=== PATIENT | male | born 1930 | race Hispanic/Latino ===

== ENCOUNTER 2017-06-04 03:00 | Emergency (ER) | payer MEDICARE ==
[2017-06-04 03:00] VITALS: PULSE 98; BMI 28.1
[2017-06-04 03:17] VITALS: TEMP 97.4
--- NOTE | 2017-06-04 03:52 | ED PDOC ---
Arrival/HPI - General Chief Complaint: Dizziness/Lightheaded Time Seen by Provider: 06/04/17 03:11 Historian: Patient - History of Present Illness Narrative History of Present Illness (Text): 06/04/17 04:25 An 86 year old male, whose past medical history includes atrial fibrillation and prostate cancer, presents to the emergency department complaining of lightheadedness, generalized weakness and urinary frequency for months. Patient reports he saw PMD in office today, who took urine culture. Patient notes shortness of breath and nausea but denies any dysuria or any other complaints at this time. Son at bedside informs me that he thinks patient may just be anxious and called him to take him to ER. Son states that when he saw patient, there was no change in his condition from the prior months but given that he is not a medical professional and not qualified to evaluated his father, he brought him to ER. Time/Duration: Other (months) Symptom Onset: Sudden Symptom Course: Unchanged Activities at Onset: Rest Context: Home Past Medical History - Provider Review Nursing Documentation Reviewed: Yes - Infectious Disease Hx of Infectious Diseases: None - Tetanus Immunization Tetanus Immunization: Unknown - Cardiac Hx Atrial Fibrillation: Yes Hx Cardiac Arrhythmia: Yes Hx Hypertension: Yes Hx Pacemaker: Yes (defibrillator 2007) - Pulmonary Hx Respiratory Disorders: No - Neurological Hx Neurological Disorder: No - HEENT Hx HEENT Disorder: No - Renal Hx Renal Disorder: No - Endocrine/Metabolic Hx Endocrine Disorders: No - Hematological/Oncological Hx Cancer: Yes (prostate 2001) - Integumentary Hx Dermatological Disorder: No - Musculoskeletal/Rheumatological Hx Musculoskeletal Disorders: No Hx Falls: No - Gastrointestinal Hx Gastrointestinal Disorders: No - Genitourinary/Gynecological Hx Genitourinary Disorders: No - Psychiatric Hx Psychophysiologic Disorder: No Hx Anxiety: No Hx Bipolar Disorder: No Hx Depression: No Hx Emotional Abuse: No Hx Hallucinations: No Hx Panic Disorder: No Hx Post Traumatic Stress Disorder: No Hx Psychosis: No Hx Physical Abuse: No Hx Schizophrenia: No Hx Sexual Abuse: No Hx Substance Use: No - Surgical History Hx Cardiac Catheterization: Yes Hx Coronary Stent: Yes Other/Comment: seeds for prostate ca 15v years ago - Anesthesia Hx Anesthesia: Yes Hx Anesthesia Reactions: No Hx Malignant Hyperthermia: No - Suicidal Assessment Feels Threatened In Home Enviroment: No Family/Social History - Physician Review Nursing Documentation Reviewed: Yes Family/Social History: No Known Family HX Smoking Status: Former Smoker Hx Alcohol Use: No Hx Substance Use: No Hx Substance Use Treatment: No Allergies/Home Meds Allergies/Adverse Reactions: Allergies No Known Allergies Allergy (Verified 06/04/17 03:03) Home Medications: Home Meds Medication Instructions Recorded Confirmed Atorvastatin [Lipitor] 10 mg PO DIN 08/11/14 06/04/17 Warfarin Sodium [Coumadin] 7.5 mg PO DAILY 08/11/14 06/04/17 Allopurinol [Zyloprim] 100 mg PO DAILY 11/14/16 06/04/17 Atenolol [Atenolol] 100 mg PO DAILY 11/14/16 06/04/17 Colchicine [Colcrys] 0.6 mg PO DAILY 11/14/16 06/04/17 Digoxin [Lanoxin] 125 mcg PO DAILY 11/14/16 06/04/17 Isosorbide Mononitrate [Imdur] 60 mg PO DAILY 11/14/16 06/04/17 Lisinopril [Prinivil] 10 mg PO DAILY 11/14/16 06/04/17 Review of Systems - Physician Review All systems were reviewed & negative as marked: Yes - Review of Systems Constitutional: Other (generalized weakness, lightheadedness) Respiratory: SOB Gastrointestinal: Nausea Genitourinary Male: Frequency. absent: Dysuria Physical Exam - Physical Exam Narrative Physical Exam (Text): 06/04/17 04:23 Constitutional: No acute distress. Head: Normocephalic. Atraumatic. Eyes: PERRL. ENT: Moist mucous membranes. Neck: Supple. Cardiovascular: Regular rate. Chest: No tenderness. Respiratory: Clear to auscultation bilaterally. GI: Soft. Nontender. Nondistended. Back: No CVA tenderness. Musculoskeletal: No tenderness or swelling of extremities. Skin: No rash. Neurologic: Alert, no focal deficit. Vital Signs Reviewed: Yes Vital Signs Temp Pulse Resp BP Pulse Ox 06/04/17 05:00 69 16 164/85 H 99 06/04/17 04:45 69 18 163/83 H 96 06/04/17 04:05 65 16 185/96 H 96 06/04/17 03:50 72 16 181/100 H 96 06/04/17 03:35 73 16 160/106 H 95 06/04/17 03:17 97.4 F L 77 16 170/109 H 97 Temperature: Afebrile Blood Pressure: Hypertensive Pulse: Regular Respiratory Rate: Normal Appearance: Positive for: Well-Appearing, Non-Toxic, Comfortable Pain Distress: None Mental Status: Positive for: Alert and Oriented X 3 Finger Stick Blood Glucose: 116 Medical Decision Making ED Course and Treatment: 06/04/17 03:45 Impression: An 86 year old male with lightheadedness, generalized weakness and urinary frequency. Differential Diagnosis included but are not limited to: Plan: -- EKG -- chest xray -- labs -- Urinalysis -- Reassess and disposition Prior Visits: Notes and results from previous visits were reviewed. Patient was last seen in the emergency department on 11/14/16 for evaluation of watery diarrhea. Progress Notes: EKG: Ordered, reviewed, and independently interpreted the EKG. Rate : 84 BPM Rhythm : Atrial fib Interpretation : No ST elevations XR Chest, 1 View FINDINGS: The cardiomediastinal silhouette is enlarged. A single lead pacemaker is identified projecting over the left anterior chest wall. Nodular asymmetries detected within the left upper lobe, a nominal finding. The remainder of the lungs are otherwise clear. No subdiaphragmatic free air or pneumothorax. The trachea is midline. IMPRESSION: Nodular asymmetry within the left upper lobe, as detailed above. Dictated and Authenticated by: Ela Dyer MD 06/04/2017 5:16 AM Eastern Time ([place] & [place]) Labs unremarkable, largely unchanged from previous. Discussed results with patient and son, will discharge home, f/u PMD and Mcdaniels, return to ER for worsening pain, fever, vomiting, dyspnea, or any other problem. Copy of XR report provided with discharge papers. - Lab Interpretations Lab Results: 06/04/17 03:40 06/04/17 03:40 Lab Results 06/04/17 04:15: Urine Color Light yellow, Urine Appearance Clear, Urine pH 6.0, Ur Specific [place] 1.010, Urine Protein Negative, Urine Glucose (UA) Negative, Urine Ketones Negative, Urine Blood Trace-lysed H, Urine Nitrate Negative, Urine Bilirubin Negative, Urine Urobilinogen 0.2, Ur Leukocyte Esterase Negative , Urine RBC 0 - 2, Urine WBC 0 - 2, Ur Epithelial Cells None, Urine Bacteria Small 06/04/17 03:40: Sodium 141, Potassium 3.9, Chloride 107, Carbon Dioxide 23, Anion Gap 15, BUN 14, Creatinine 0.7, Est GFR ( Amer) > 60, Est GFR (Non- Af Amer) > 60, Random Glucose 114 H, Calcium 9.4, Total Bilirubin 1.1, AST 36, ALT 51, Alkaline Phosphatase 97, Total Protein 8.2, Albumin 4.4, Globulin 3.8, Albumin/Globulin Ratio 1.2 06/04/17 03:40: PT 26.1 H, INR 2.42 H, APTT 42.6 H 06/04/17 03:40: WBC 4.3 L, RBC 4.82, Hgb 14.5, Hct 41.7 L, MCV 86.5, MCH 30.1, MCHC 34.8, RDW 13.9, Plt Count 95 L, MPV 9.7, Gran % 60.4, Lymph % (Auto) 25.5, Taney % (Auto) 10.4 H, Eos % (Auto) 3.2, Baso % (Auto) 0.5, Gran # 2.60, Lymph # 1.1 L, Taney # 0.5, Eos # 0.1, Baso # 0.02 06/04/17 03:32: POC Glucose (mg/dL) 116 H I have reviewed the lab results: Yes - RAD Interpretation Radiology Orders: 06/04/17 03:30 CHEST PORTABLE [RAD] Stat - EKG Interpretation Interpreted by ED Physician: Yes Type: 12 lead EKG - Scribe Statement The provider has reviewed the documentation as recorded by the Fabiola Jacobo Provider Scribe Attestation: All medical record entries made by the Fabiola were at my direction and personally dictated by me. I have reviewed the chart and agree that the record accurately reflects my personal performance of the history, physical exam, medical decision making, and the department course for this patient. I have also personally directed, reviewed, and agree with the discharge instructions and disposition. Disposition/Present on Arrival - Present on Arrival Any Indicators Present on Arrival: No History of DVT/PE: No History of Uncontrolled Diabetes: No Urinary Catheter: No History of Decub. Ulcer: No History Surgical Site Infection Following: None - Disposition Have Diagnosis and Disposition been Completed?: Yes Diagnosis: Urinary frequency Disposition: HOME/ ROUTINE Disposition Time: 05:37 Patient Plan: Discharge Condition: STABLE Discharge Instructions (ExitCare): Lightheadedness (ED) Referrals: Vaughn Mcdaniels MD [Staff Provider] - Follow up with primary
[2017-06-04 04:06] LABS: ALB/GLOB RATIO 1.2 (1.1-1.8); ALBUMIN 4.4 g/dL (3.0-4.8); ALT/SGPT 51 U/L (7-56); AST/SGOT 36 U/L (15-59); BLOOD UREA NITROGEN 14 mg/dL (7-21); CALCIUM 9.4 mg/dL (8.4-10.5); GFR AFRICAN-AMERICAN > 60; GFR NON-AFRICAN AMERICAN > 60
[2017-06-04 04:13] LABS: BASO # 0.02 K/mm3 (0.0-2.0); BASO % 0.5 % (0.0-3.0); EOS # 0.1 (0.0-0.7); EOS % 3.2 % (1.5-5.0); GRAN % 60.4 % (50.0-68.0); HEMOGLOBIN 14.5 gm/dL (14.0-18.0); LYMPH # 1.1 (1.2-3.4); LYMPH % 25.5 % (22.0-35.0); MEAN CELL VOLUME 86.5 fL (80.0-105.0); MEAN CORPUSCULAR HEMOGLOBIN 30.1 pg (25.0-35.0); MEAN CORPUSCULAR HGB CONC 34.8 g/dl (31.0-37.0); MEAN PLATELET VOLUME 9.7 fl (7.0-11.0); MONO # 0.5 (0.1-0.6); MONO % 10.4 % (1.0-6.0); PLATELET COUNT 95 10^3/uL (120.0-450.0); RBC 4.82 10^6/uL (3.5-6.1); RED CELL DISTRIBUTION WIDTH 13.9 % (11.5-14.5); WHITE BLOOD COUNT 4.3 10^3/ul (4.5-11.0)
[2017-06-04 04:30] LABS: URINE BILIRUBIN NEGATIVE (NEGATIVE); URINE BLOOD TRACE-LYSED (NEGATIVE); URINE GLUCOSE (UA) NEGATIVE (NEGATIVE); URINE LEUKOCYTE ESTERASE NEGATIVE Leu/uL (NEGATIVE); URINE NITRATE NEGATIVE (NEGATIVE); URINE PROTEIN NEGATIVE mg/dL (<30 mg/dL); URINE UROBILINOGEN 0.2 E.U./dL (<1 E.U./dL)
[2017-06-04 04:33] LABS: URINE APPEARANCE CLEAR (CLEAR); URINE COLOR LIGHT YELLOW (YELLOW)
[2017-06-04 04:34] LABS: INR 2.42 (0.93-1.08); PARTIAL THROMBOPLASTIN TIME 42.6 Seconds (23.7-30.8); PROTHROMBIN TIME 26.1 Seconds (9.9-11.8)
[2017-06-04 04:42] LABS: URINE BACTERIA SMALL (NEG); URINE RBC 0 - 2 /hpf (0-2); URINE WBC 0 - 2 /hpf (0-6)
[2017-06-04 04:50] VITALS: PULSE 69
[2017-06-04 05:00] VITALS: BP 164/85; RESP 16; O2SAT 99
--- NOTE | 2017-06-04 05:17 | RAD ---
EXAM: XR Chest, 1 View CLINICAL HISTORY: 86 years old, male; Signs and symptoms; Dyspnea TECHNIQUE: Frontal view of the chest. COMPARISON: No relevant prior studies available. FINDINGS: The cardiomediastinal silhouette is enlarged. A single lead pacemaker is identified projecting over the left anterior chest wall. Nodular asymmetries detected within the left upper lobe, a nominal finding. The remainder of the lungs are otherwise clear. No subdiaphragmatic free air or pneumothorax. The trachea is midline. IMPRESSION: Nodular asymmetry within the left upper lobe, as detailed above.
--- NOTE | 2017-06-04 20:45 | CARD ---
APPROVED REPORT EKG Measurement Heart [id number] <Conclusion> Atrial fibrillation with premature ventricular or aberrantly conducted complexes Left anterior fascicular block Nonspecific ST and T wave abnormality, probably digitalis effect Prolonged QT Abnormal ECG
== END 2017-06-04 05:45 | disposition home or self-care (01) ==
LOC: ED 03:00
DX: R35.0 Frequency of micturition (principal)

== ENCOUNTER 2018-01-31 10:20 | Emergency (ER) | payer MEDICARE ==
[2018-01-31 11:15] VITALS: BMI 27.8
[2018-01-31 11:43] VITALS: RESP 18; TEMP 98
--- NOTE | 2018-01-31 12:35 | ED PDOC ---
Arrival/HPI - General Historian: Patient, Spouse - History of Present Illness Time/Duration: Prior to Arrival, 1/2 hour Symptom Course: Resolved Severity Level: 3 Activities at Onset: Rest Context: Sitting - General Chief Complaint: ENT Problem - History of Present Illness Narrative History of Present Illness (Text): 01/31/18 12:31 87M hx of CAD and pacemaker placement on Warfarin presents to [facility] [facility] w/ bilateral nostril epistaxis that continuously dripped for at least 15minutes prior to arrival. Stated that he blew his nose and bleeding started. Denies falls, or physical trauma to the area. Patient attempted to pack nose with gauze to slow down bleeding, however when gauze was removed bleeding continued. During encounter in the hospital bleed has resolved. Dry blood is seen around nostril. Of note: was getting blood work to check INR today at Dr. Wilson's office. (Manas Cabrera) Past Medical History - Provider Review Nursing Documentation Reviewed: Yes - Travel History Have you recently traveled outside [place] w/in the past 3 mons?: No - Infectious Disease Hx of Infectious Diseases: None - Tetanus Immunization Tetanus Immunization: Unknown - Cardiac Hx Atrial Fibrillation: Yes Hx Cardiac Arrhythmia: Yes Hx Hypertension: Yes Hx Pacemaker: Yes (with defib) - Psychiatric Hx Substance Use: No - Surgical History Other/Comment: pacemaker/defib - Anesthesia Hx Anesthesia Reactions: No Hx Malignant Hyperthermia: No Family/Social History - Physician Review Nursing Documentation Reviewed: Yes Family/Social History: Other (non-contributory) Smoking Status: Former Smoker Hx Alcohol Use: No Hx Substance Use: No Allergies/Home Meds Allergies/Adverse Reactions: Allergies No Known Allergies Allergy (Verified 06/04/17 03:03) Home Medications: Home Meds Medication Instructions Recorded Confirmed Atorvastatin [Lipitor] 10 mg PO DIN 08/11/14 01/31/18 Warfarin Sodium [Coumadin] 7.5 mg PO DAILY 08/11/14 01/31/18 Allopurinol [Zyloprim] 100 mg PO DAILY 11/14/16 01/31/18 Atenolol [Atenolol] 100 mg PO DAILY 11/14/16 01/31/18 Colchicine [Colcrys] 0.6 mg PO DAILY 11/14/16 01/31/18 Digoxin [Lanoxin] 125 mcg PO DAILY 11/14/16 01/31/18 Lisinopril [Prinivil] 10 mg PO DAILY 11/14/16 01/31/18 Atenolol [Atenolol] 100 mg PO DAILY 01/31/18 01/31/18 Review of Systems - Physician Review All systems were reviewed & negative as marked: Yes - Review of Systems Constitutional: absent: Fatigue, Weight Change, Fevers Eyes: absent: Vision Changes, Photophobia ENT: Epistaxis. absent: Hearing Changes, Tinnitus, Sore Throat Respiratory: absent: SOB, Cough, Sputum Cardiovascular: absent: Chest Pain, Palpitations, Edema, Calf Pain Gastrointestinal: absent: Abdominal Pain, Stool Changes, Constipation, Diarrhea , Nausea, Vomiting Genitourinary Male: absent: Dysuria Musculoskeletal: absent: Back Pain Skin: absent: Skin Lesions Neurological: absent: Headache, Dizziness, Focal Weakness, Facial Droop Endocrine: absent: Diaphoresis Physical Exam Vital Signs Reviewed: Yes Temperature: Afebrile Blood Pressure: Normal Pulse: Regular Respiratory Rate: Normal Appearance: Positive for: Well-Appearing, Non-Toxic, Comfortable Pain Distress: None Mental Status: Positive for: Alert and Oriented X 3 - Systems Exam Head: Present: Atraumatic, Normocephalic Extroacular Muscles: Present: EOMI Conjunctiva: Present: Normal Ears: Present: Normal, NORMAL TM. No: TM Perf Mouth: Present: Moist Mucous Membranes, Dry Pharnyx: Present: Normal. No: ERYTHEMA, EXUDATE Nose (External): Present: Atraumatic Nose (Internal): Present: No Active Bleeding, Epistaxis (resolved w/ dried blood clots) Neck: Present: Normal Range of Motion Respiratory/Chest: Present: Clear to Auscultation, Good Air Exchange. No: Respiratory Distress, Accessory Muscle Use Cardiovascular: Present: Regular Rate and Rhythm, Normal S1, S2. No: Murmurs Abdomen: No: Tenderness, Distention, Peritoneal Signs Upper Extremity: Present: Normal Inspection. No: Edema Lower Extremity: Present: Normal Inspection. No: Edema Neurological: Present: GCS=15, Speech Normal Skin: Present: Warm, Dry. No: Rashes Psychiatric: Present: Alert, Oriented x 3 Vital Signs Temp Pulse Resp BP Pulse Ox 01/31/18 10:21 98 F 63 18 125/71 97 Medical Decision Making - Lab Interpretations Interpretation: All labs normal ED Course and Treatment: Seen and examined with resident. 87 y/o M p/w epistaxis. On exam, no active bleeding. No septal hematoma. (Patel Gaffney) 01/31/18 12:45 Will get INR Clean and dried area apply bactracin to nostril bilateral counselled patient on how to hold nose and apply pressure if nosebleed were to occur again (Manas Cabrera) - Lab Interpretations Narrative Lab Interpretation (Text): 01/31/18 13:40 INR 3.17 (Manas Cabrera) Lab Results: Lab Results 01/31/18 13:20: PT 37.3 H, INR 3.17 H - PA / SERVICE STATION OPERATOR / Resident Statement MD/DO has reviewed & agrees with the documentation as recorded. MD/DO has examined the patient and agrees with the treatment plan. Disposition/Present on Arrival - Present on Arrival Any Indicators Present on Arrival: No History of DVT/PE: No History of Uncontrolled Diabetes: No Urinary Catheter: No History of Decub. Ulcer: No History Surgical Site Infection Following: None - Disposition Have Diagnosis and Disposition been Completed?: Yes Disposition Time: 13:41 Patient Plan: Discharge - Disposition Diagnosis: Epistaxis Disposition: HOME/ ROUTINE Patient Problems: Current Active Problems Problem Status Onset Epistaxis Acute Condition: GOOD Discharge Instructions (ExitCare): Nosebleeds (DC) Additional Instructions: Thank you for letting us take care of you today. You were treated for bilateral epistaxis. The emergency medical care you received today was directed at your acute symptoms. If you were prescribed any medication, please fill it and take as directed. It may take several days for your symptoms to resolve. Return to the Emergency Department if your symptoms worsen, do not improve, or if you have any other problems. During hospital stay, inspected nostrils, no active bleeding noted. Applied bactracin to keep area moist. At home if nosebleed were to happen again, apply direct pressure, lean forward for 3 minutes. If bleeding continues at that time , return to the ER. Please contact your doctor or call one of the physicians/clinics you have been referred to that are listed on the Patient Visit Information form that is included in your discharge packet. Bring any paperwork you were given at discharge with you along with any medications you are taking to your follow up visit. Our treatment cannot replace ongoing medical care by a primary care provider (PCP) outside of the emergency department. Thank you for allowing the [facility] team to be part of your care today. Referrals: Rafael Jarvis MD [Primary Care Provider] - Follow up with primary Forms: [facility] (Welsh)
[2018-01-31 13:37] LABS: INR 3.17 (0.93-1.08); PROTHROMBIN TIME 37.3 SECONDS (9.4-12.5)
[2018-01-31 15:02] VITALS: BP 133/70; PULSE 70; O2SAT 98
== END 2018-01-31 13:50 | disposition home or self-care (01) ==
LOC: ED 10:20
DX: R04.0 Epistaxis (principal); I10 Essential (primary) hypertension; I48.91 Unspecified atrial fibrillation; Z87.891 Personal history of nicotine dependence